=== PATIENT | male | born 1985 | race Caucasian/White ===

== ENCOUNTER 2016-07-14 05:05 | Inpatient (IN) | payer MEDICAID, OTHER ==
[~2016-07-14] VITALS: Ht 172.7 cm; Wt 73.8 kg
[2016-07-14] VITALS (9 sets, daily range): BP systolic 135–175; BP diastolic 63–90; PULSE 95–150; RESP 20–28; O2SAT 95–100
[~2016-07-14 05:05] MED LIST: PANT40TA3 PO
[2016-07-14 05:30] LABS: BASOPHILS % (AUTO) 1.1 % (0-3); EOSINOPHILS % (AUTO) 4.7 % (0-5); MONOCYTES % (AUTO) 6.8 % (4-12); Mean Corpuscular Hemoglobin 30.6 pg (27.0-35.0); Mean Corpuscular Volume 88.8 fL (81-100); NEUTROPHILS % (AUTO) 59.8 % (40-74); Platelet Count 274 bil/L (150-400)
--- NOTE | 2016-07-14 06:22 | ED.REPORT ---
HPI-Psychiatric Illness Date of Service Jul 14, 2016 ED Provider: Kimberly Cortez MD 31 year old male with a history of schizophrenia, bipolar disorder, panic disorder, anxiety, and alcoholism presents to the ER escorted by his father due to paranoid delusions. He states that: "I thought the neighbors were attacking me"; "I'm non-violent"; "I want to go to [facility], self-committed if possible". He also reports auditory hallucinations. Patient admits to alcohol consumption tonight, and regular THC use, though he denies current methamphetamine use. Currently he is on hydrocodone and amoxicillin for the past three days after having his wisdom teeth extracted. In the past he was on Latuda and Zyprexa which were not effective. He reports that he has been banned from mental health court for a prior misdemeanor secondary to alcohol and THC use. Nursing Notes Stated Complaint: PSYCH EVAL Chief Complaint: Psychiatric Complaint Nursing Notes Reviewed: Yes Allergies: Coded Allergies: No Known Allergies (Verified Allergy, Unknown, 07/15/15) Scheduled Pantoprazole (Pantoprazole DR) 40 Mg Tablet.dr 40 MG PO DAILY General Time Seen by MD: 05:09 Chief Complaint Hallucinations, auditory, Paranoid Hx Obtained From: Patient, Other family... (Father) Arrived By: Walk-in Onset Occurred: Just prior to arrival Context of Onset: Intoxicated, alcohol Symptom Duration: Since onset Associated with: Reports: Anxiety, Delusions, Paranoia, Denies: Violence Related History: Reports: Alcohol abuse, Anxiety, Bipolar disorder, Illicit drug use, Schizophrenia Similar Sx Previous: Yes Risk-Psychiatric Illness Suicide Risk Stratification Suicide Risk Factors - Adult: : Alcohol use: Substance abuse RF Statements: Risk factors reviewed Past Medical History Past Medical History Schizophrenia Bipolar disorder Panic disorder Anxiety Agoraphobia MRSA in toe Reports: Pancreatitis Smoking History Current Every Day Smoker Social History Alcohol Use: >5 per day Drug Use: Meth, THC Other Social History: Good social support, Lives with parents, Local resident Ambulatory Status Independent Review of Systems Psychiatric: Reports: Anxiety, Delusional, Hallucinations, auditory, Denies: Confusion, Depression, Homicidal ideation, Hostile, Suicidal ideation Complete sys rev & neg: except as marked. Physical Exam Initial Vital Signs Vital Signs (First) Date Time Temp Pulse Resp B/P Pulse Ox O2 Delivery O2 Flow Rate FiO2 07/14/16 05:11 36.0 150 28 175/90 100 Room Air Initial VS: Reviewed Head / Eyes: Atraumatic, Normocephalic Neck: Supple, Non-tender, Full range of motion Abdomen / GI: Soft, Non-tender, No guarding, No rebound, No distention Extremities: Vascular intact, Neuro intact, No swelling, No tenderness General/Constitutional: Awake, Alert, Well developed Behavior: Positive: Anxious, Restless Neurologic: Oriented X3, Speech NL, No sensory deficits, Cerebellar NL, Memory NL Movement Abnormality: Positive: Akathisia Moderately focused. Good eye contact. Psychiatric: Not suicidal, Not homicidal, Cognitive function NL Abnormal Thinking / Perception: Positive: Delusions - paranoid, Hallucinations , auditory Respiratory / Chest: Breath sounds NL, Breath sounds = bilat, No respiratory distress, No rales, No rhonchi, No wheezing Cardiovascular: Heart rate NL, Regular rhythm, Heart sounds NL, Peripheral circulation NL Upper Extremity / MS: Full range of motion, No deformity, Neurologic intact, Vascular intact No self-inflicted injuries. Wrist / Hand: Full range of motion, No deformity, Neurologic intact, Vascular intact Clubbing of fingers. Interpretation & Diagnostics Interpretation & Diagnostics: CIWA 16 and breathalizer .19 utox: THC, opiate, tricyclics Lab Results Interpretation Result Diagram: 07/14/16 0513 07/14/16 0513 Test 07/14/16 05:12 07/14/16 05:13 07/14/16 05:30 Hold Zaman Top Tube Received (Received) White Blood Count 7.2th/mm3 (3.8-10.1) Red Blood Count 4.80mil/mm3 (4.40-5.80) Hemoglobin 14.7g/dL (13.8-17.2) Hematocrit 42.6% (41.0-50.0) Mean Corpuscular Volume 88.8fL (81-100) Mean Corpuscular Hemoglobin 30.6pg (27.0-35.0) Mean Corpuscular Hemoglobin Concent 34.5% (32.0-37.0) Red Cell Distribution Width 13.3% (12.3-15.4) Platelet Count 274bil/L (150-400) Neutrophils (%) (Auto) 59.8% (40-74) Lymphocytes (%) (Auto) 27.3% (14-46) Monocytes (%) (Auto) 6.8% (4-12) Eosinophils (%) (Auto) 4.7% (0-5) Basophils (%) (Auto) 1.1% (0-3) Sodium Level 142mEq/L (134-144) Potassium Level 4.3mEq/L (3.5-5.2) Chloride Level 102mEq/L (97-108) Carbon Dioxide Level 18mmol/L (18-29) Blood Urea Nitrogen 15mg/dL (6-20) Creatinine 1.75mg/dL (0.76-1.27) Estimat Glomerular Filtration Rate 48mL/min (>59) Glucose Level 73mg/dL (60-99) Calcium Level 9.1mg/dL (8.5-10.1) Total Bilirubin 0.3mg/dL (0.0-1.2) Aspartate Amino Transf (AST/SGOT) 68U/L (0-50) Alanine Aminotransferase (ALT/SGPT) 29U/L (0-44) Alkaline Phosphatase 128U/L (25-150) Total Protein 7.0g/dL (6.4-8.4) Albumin 4.5g/dL (3.4-5.0) Thyroid Stimulating Hormone (TSH) 1.770uIU/mL (0.450-4.500) Hold Urine Received (Received) Re-Eval/Medical Decision Med Decision/Clinical Course very cooperative and asking for help with the voices. Will need medical assistance with the alcohol withdrawal. Renal insufficiency will need additional following but veronika is volume related. Have requested formal psychiatric in-pt consult to help with med management. Will need social work to help with dispo once through alcohol detox Source of Hx: Old records Re-Evaluation/Progress : Time of Eval: 07:43 Re-Evaluation/Progress Note: Discussed need for admission. Patient is amenable to the plan. All other questions addressed. Consultation : Referral / Consult Name: Lyric Lewis DO Consulted With: Hospitalist Call Returned at: 08:40 Certified Professional Midwife: Agrees with eval, Agrees with plan, Accepts admit Counseled Regarding: Diagnosis, Lab results, Need for admission Discharge & Departure Impression: Primary Impression: Alcohol withdrawal Additional Impressions: Schizophrenia Schizophrenia type: disorganized schizophrenia Qualified Code: F20.1 - Disorganized schizophrenia Acute renal injury )( Condition at Discharge: No danger to self, No danger to others, No suicidal ideation, No homicidal ideation Disposition: ADMITTED TO HOSPITAL Discharge Condition All VS Reviewed: Yes Condition: Improved Referrals: Sivakumar Garcia MD (PCP) Saulo Attestation Portions of this note were transcribed by Raj Redman. I, Dr. Cortez, personally performed the history, physical exam and medical decision-making; I reviewed and confirmed the accuracy of the information in the transcribed note. Signed by: Saulo Araya, 07/14/2016 and 08:56 copies to: Sivakumar Garcia MD, Shawna L MD Jul 14, 2016 06:22 RAJ REDMAN Jul 14, 2016 06:28
[2016-07-14] MEDS ORDERED: 0.9% Sodium Chloride 1,000 ML IV ONE (07:12)
[2016-07-14] MEDS ORDERED: LORazepam 2 mg Tablet PO ONE (07:15)
[2016-07-14] MEDS ORDERED: Alum-Mag Hydrox-Simeth 30 mL Suspension PO ONE (08:40)
[2016-07-14] MEDS ORDERED: Alum-Mag Hydrox-Simeth 30 mL Suspension PO PRN (09:30)
[2016-07-14] MEDS ORDERED: Ondansetron 2 mg/mL 2 mL Inj IVPUSH PRN (09:30)
[2016-07-14] MEDS ORDERED: Polyethylene Glycol (PEG) 17 Gm Powder PO PRN (09:30)
[2016-07-14] MEDS ORDERED: Thiamine Inj 100 MG, Folic Acid Inj 1 MG, Magnesium Sulfate 50% Inj 2 GM, Multivitamins... IV ONE ×5 (09:35)
[2016-07-14 10:07] LABS: INR 0.88 ratio
[2016-07-14 10:32] LABS: Creatine Kinase 245 U/L (21-232); Magnesium 2.2 mg/dL (1.6-2.6); Phosphorus 4.4 mg/dL (2.5-4.9)
--- NOTE | 2016-07-14 11:00 | NUR ---
Arrival to floor Pt arrives to floor from ED Pt is very fidgety, alert and orient and very cooperative.
[2016-07-14] MEDS ORDERED: IBUP200C PO (11:30)
[2016-07-14] MEDS ORDERED: Multivit-Miner-Folic Acid-Iron Tablet PO SCH (12:00)
[2016-07-14] MEDS: Multivit-Miner-Folic Acid-Iron Tablet PO SCH (13:45)
[2016-07-14] MEDS ORDERED: LORazepam 1 mg Tablet PO ONE (14:35)
[2016-07-14] MEDS ORDERED: Acetaminophen IV 1,000 MG in IV Premix 1 EACH IV ONE (14:35)
[2016-07-14] MEDS: 0.9% Sodium Chloride 1,000 ML IV SCH (15:00)
--- NOTE | 2016-07-14 15:55 | PCM.HPMED ---
Subjective Date of Service Jul 14, 2016 Primary Provider: Admitting Physician: Lyric Lewis DO Primary Care Physician: Sivakumar Garcia MD Attending Physician: Lyric Lewis DO Admit Status: Admit to Blue Team Chief Complaint: Auditory hallucinations History of Present Illness: Patient is an 31-year-old white male with history of bipolar disorder, schizophrenia, anxiety with panic attacks and alcoholism who presented to [facility] Emergency Department with paranoid delusions. Patient states he started having auditory hallucinations about 2 years ago. Last night he started having hallucinations again and he thought that his neighbors were attacking him. Patient states every time he has hallucinations he develops panic attacks and he uses alcohol as his medication. So last night he started drinking, he had about a bottle of white wine, but this time hallucinations did not go away and he became more combative and aggressive to the point the patient 's father brought him in to the emergency department. He also admits to regular THC use and denies current methamphetamine use. He was diagnosed with anxiety and panic attacks in 2007, and has been diagnosed with schizophrenia and bipolar disorder in the fall of 2016 at [facility]. In the past he was on left to and Zyprexa which were not effective, according to the patient. He reports that he has been banned from mental health court for a prior misdemeanor secondary to alcohol and THC use. Patient desires to get psychiatric evaluation to help with medication management. He is currently not taking any antipsychotic and/or antidepressant medications. Patient currently denies chest pain, shortness of breath, heart palpitations, nausea, vomiting, diarrhea, chills, tremors, headache. He does endorse sore mouth as he had his wisdom teeth extracted just recently and he was on hydrocodone and amoxicillin for the past 3 days at home. In the emergency department his vital signs were: temperature 36.04 C, pulse 150 , respiratory rate 28, pulse ox 100% on room air. His blood work is significant for creatinine of 1.75, AST of 68 and total creatinine kinase of 254. CIWA score of 16, and breathalizer 0.19. He was given Haldol 5 mg, Lorazepam 2 mg, Diazepam IV, banana bag. Review of Systems: A comprehensive review of systems was conducted with the patient and found to be negative except as above in the history of present illness. Allergies Coded Allergies: No Known Allergies (Verified Allergy, Unknown, 07/15/15) Home Medications OTC Tylenol and ibuprofen PMH Schizophrenia Bipolar disorder Panic disorder Anxiety Depression Agoraphobia H/o MRSA in toe H/o pancreatitis Surgical History Hand surgery Family History Mother and father are healthy and alive Social History Hx Alcohol Use: Yes (Everyday since 11 years of age) Alcoholic Drinks Per Day: 3 beer or 2 glasses of wine Hx Substance Use: Yes (marijuana, LSD, last smoked meth one month ago. ) Hx Tobacco Use: Yes (smoking since 11 years of age) Smoking Status: Current Every Day Smoker Living Arrangement: with Family Exam Vital Signs Vital Sign - Last Date Time Temp Pulse Resp B/P Pulse Ox O2 Delivery O2 Flow Rate FiO2 07/14/16 09:44 120 07/14/16 09:16 37.1 20 135/63 95 Room Air Exam Gen: Awake, alert, well developed, mildly anxious Head: Atraumatic, normocephalic Eyes: PEERL, EOMI anicteric sclera Neck: Supple, nontender, range of motion Heart: RRR, S1, S2, no murmurs appreciated Lungs: Clear to auscultation bilaterally, no respiratory distress, no wheezing Extremities: Vascular/Intact, no edema, clubbing (hands), splinter hemorrhages second and third finger, right hand Neuro: Alert and oriented 3 Psych: Anxious, restless (akathisia) Lab and Diagnostics Labs UA pending Urine tox: THC, opiates, tricyclics Hepatitis panel pending Tox screen negative Result Diagram: 07/14/1651207/14/16512 Assessment & Plan This is a 31-year-old very pleasant male with history of bipolar disorder, schizophrenia, anxiety with panic attacks and alcoholism who presented to [facility] Emergency Department with paranoid delusions and vocal hallucinations. Admitted for alcohol withdrawal. Hospital day #1. #1 Alcohol intoxication, present on admission, active -CIWA 16 and breathalizer 0.19 -Long-standing history of alcohol dependence -Banana bag -Thiamine 100 mg IV 3 days -Multivitamin and Folate daily -Diazepam according to CIWA -NS IV @ 100 mls/hr #2 Paranoid delusions and auditory hallucinations, present on admission, active -H/o of schizophrenia, patient has been on Latuda and Zyprexa without positive effect -Patient reports decrease of symptoms after dose of Haldol in ED -Psychiatry consult -Haldol, 2 mg q8h, may consider changing to Invega Sustenna (IM monthly) -Close monitoring #3 Acute kidney injury, present on admission, active -Creatinine of 1.75 on admission, baseline unknown -Most likely volume related -NS IV @ 100 mls/hr -Avoid nephrotoxic drugs -Labs in the morning #4 Anxiety, present on admission, active -Lorazepam 1mg hs -Psychiatry consult #5 Pain disorder, present on admission, active -As above in #4 #6 Gum pain s/p wisdom teeth extraction, present on admission, active -Tylenol, po for pain -Continue amoxicillin 500 mg tid x 4 days #7 Chronic drug dependence, present on admission, active -Maintain medication for chronic anxiety #8 Alcohol dependence -Education and counseling for substance abuse cessation Pain Evaluation: Adequate Pain Control VTE Prophylaxis: SCDs Resuscitation Status: CPR: Attempt Resuscitation Attending Statement The patient was seen and examined together with Dr. Rodriguez on 07/14/16 and I agree with the history, exam and plan as outlined in the note above. Emily Rodriguez DO Jul 14, 2016 15:00 Lyric Lewis DO Jul 15, 2016 15:17
[2016-07-14] MEDS: Heparin 5,000 Unit/mL Inj SUBQ SCH (17:01)
--- NOTE | 2016-07-14 18:33 | NUR ---
LOC Nurse took over patient care around 1600. Patient slept for most of remainder of shift except when woken for medications and to order dinner. When patient is awake, patient has spastic rigid movements with his arms. Patient is slow to verbally respond at times and does word searching.
[2016-07-14] MEDS: LORazepam 0.5 mg Tablet PO SCH (20:25)
[2016-07-15] MEDS: 0.9% Sodium Chloride 1,000 ML IV SCH (00:43)
[2016-07-15] MEDS: Heparin 5,000 Unit/mL Inj SUBQ SCH ×3 (00:43→17:50)
[2016-07-15 01:29] VITALS: BP 148/94; PULSE 83; RESP 18; O2SAT 97
[2016-07-15 02:09] LABS: Hepatitis A Antibody IgM Negative (Negative); Hepatitis B Core Antibody IgM Negative (Negative)
[2016-07-15 05:11] VITALS: BP 162/94; PULSE 78; RESP 18; O2SAT 98
--- NOTE | 2016-07-15 05:52 | NUR ---
LOC/CIWA Pt rested throughout the night with no complaints of pain or discomfort. Denies SOB, n/v or chest pain. Pt drowsy, but able to answer questions and follow directions appropriately. CIWA scored at 9. Pt denies any auditory or visual hallucinations. Call light within reach. Pleasant and cooperative with care.
[2016-07-15 06:53] LABS: BASOPHILS % (AUTO) 0.5 % (0-3); EOSINOPHILS % (AUTO) 2.1 % (0-5); MONOCYTES % (AUTO) 4.6 % (4-12); Mean Corpuscular Hemoglobin 30.9 pg (27.0-35.0); Mean Corpuscular Volume 89.7 fL (81-100); NEUTROPHILS % (AUTO) 77.7 % (40-74); Platelet Count 231 bil/L (150-400)
[2016-07-15 07:13] LABS: Vitamin B12 493 pg/mL (211-946)
[2016-07-15 08:00] VITALS: PULSE 94
[2016-07-15 08:30] VITALS: BP 163/97; PULSE 85; RESP 17; O2SAT 97
[2016-07-15] MEDS: Multivit-Miner-Folic Acid-Iron Tablet PO SCH (08:53)
[2016-07-15] MEDS: Thiamine Inj 100 MG in 0.9% Sodium Chloride 100 ML IV SCH (09:40)
--- NOTE | 2016-07-15 10:49 | NUR ---
NO HARM CONTRACT Pt reported to have past attempt thoughts with no current ideations of suicide or homicide. Speak/converse with pt in a kind/compassionate/no judgemental way. Pt willing to sign NO HARM CONTRACT. Placed in chart. Monitoring per suicide intervention every 30 min.
--- NOTE | 2016-07-15 11:45 | NUR ---
Social Work Note - Mental health evaluation Jh Thompson is a 31 yr old who was admitted for acute alcohol withdrawal, DILL[place]. EMR reviewed: Pt has [facility] insurance, his PCP is Dr Garcia. BUSINESS DEVELOPMENT ENGINEER met with pt - introduced SW and explained SW role. Pt lives at home with his mother and father on [address]. He is not employed, has no income, is supported by his family. Current Mental Status: Pt is alert, oriented, sitting up in bed. Poor eye contact. Very anxious - fidgeting, sweating. He is able to share information, but is soft spoken, does not volunteer information. He endorses auditory hallucinations - recognizes the voices as friends from his past - they mumble and "mess with me" and he describes it as getting worse. Denies any command hallucinations, denies that the voices are degrading. "Just so annoying". He denies any suicidal ideations, no hx of attempts, no plans for self harm. He is independent with his ADLS. Reports to sleeping much of the day and night, appropriate appetite. Denies any new stressors, but admits that he is agoraphobic - isolated due to anxiety. Psychiatric History/Treatment: Pt has hx of Mental health - states that he was diagnosed with Schizophrenia and Bipolar. He endorses severe anxiety at baseline as well. [facility] confirms that pt has had no Inpt treatment or hospitalizations, was open with [facility] until May 2016 - was closed because he did not follow up with appointments - last seen at [facility] in January 2016. Chemical Dependency: Pt admits that he struggles with alcohol daily - drinks at least a bottle of wine a day to help him sleep and to help quiet his auditory hallucinations. He has hx of meth, LSD and heroin use - last used about a year ago when he moved in with his parents. He smokes THC daily for anxiety. Pt states that he does not connect with old friends because they do drugs and he does not want to get into trouble. He denies any current substance use disorder treatment. He identifies that he needs to cut back on alcohol but does not think he will stop drinking all together. Legal Hx: Pt was charged for indecent exposure in 2014 - States that he was "sleepwalking" under the influence of drugs and was caught. He went to court and spent some time in fpc. Denies any current legal issues but was court ordered to work with [facility] - When Court expectations were met, he stopped going to meetings, stopped taking medications. Suicide Risk: Pt denies any current or past suicidal ideations. He is willing to safety plan and states that he would tell his family if he started feeling like ending his life. Pt gave BUSINESS DEVELOPMENT ENGINEER permission to talk with pt's family - BUSINESS DEVELOPMENT ENGINEER spoke with pt's father Cale on the phone. Cale states that pt is isolated, unmotivated, anxious and an alcoholic. He states that pt would benefit from substance use treatment and mental health services but he likely will not follow through with senior care help. Family will allow pt to return home at d/c and will encourage community follow up. Pt does not drive - BUSINESS DEVELOPMENT ENGINEER will encourage Pt to use transportation from his insurance to get to Community assessments and appointments. BUSINESS DEVELOPMENT ENGINEER provided phone numbers and community resources. BUSINESS DEVELOPMENT ENGINEER called [facility] - asked for Hospital follow up and Emergency services appointment for Monday at [facility]. BUSINESS DEVELOPMENT ENGINEER discussed case with MD and provided update to BUSINESS DEVELOPMENT ENGINEER who will follow. Plan: Home with family in POV with follow up next week at [facility] for Mental Health and Substance Use Disorder assessments. PUNEET Guzman
--- NOTE | 2016-07-15 14:43 | CONS ---
[address] [address] CONSULTATION REPORT PATIENT: LORENZO BOWER : 1985 MR#: [id number] ADMIT: 07/14/2016 JOB ID: [id number] DATE OF SERVICE: 07/15/2016 INTERNAL MEDICINE SERVICE CONSULT: IDENTIFICATION: The patient is a 31-year-old, single white male, currently living with his family. He is currently unemployed and lives on [facility] with his family. REASON FOR ADMISSION: Client to the emergency department on July 13, 2016, with significant symptoms of delusions. He stated, "I thought the neighbors were attacking me. I want to go to [facility]." He was found to be in acute alcohol withdrawal and was admitted to the Medical service for stabilization. REASON FOR CONSULT: Assistance in psychiatric care. HISTORY OF PRESENT ILLNESS: I was asked to consult the patient for evaluation and treatment of psychotic symptoms. I met with him for a 60-minute evaluation and reviewed course and records kept by [facility]. Client's main issue is alcohol withdrawal. Co-occurring issues are an underlying psychotic disorder. The alcoholic withdrawal is acute and has been developing over the past 72 hours due to stopping alcohol use. He is tending to spend most of his day drinking and smoking. He is using alcohol, marijuana and cigarettes. It appears he was attempting to self medicate. Approximately six months ago he was diagnosed at [facility] with a psychotic disorder. He was tried on Zyprexa and Latuda, and stated they "did not work." He is currently having symptoms of derogatory auditory hallucinations and persecutory delusions. He is requesting medications, treatment and followup. All the above are improved when he refrains from alcohol and marijuana, when he gets good relaxation and when he has good social support. He is currently presenting with signs of tremulousness that seem to be related to the alcohol withdrawal. His cognition, judgment, insight, coping and reality testing were all quite good today. PSYCHIATRIC REVIEW OF SYSTEMS: Positive for psychosis in terms of auditory hallucinations and delusional thought. PAST MEDICAL HISTORY: MEDICATIONS: Client was on no psychiatric medications prior to admission. He is currently receiving amoxicillin and Valium per the CIWA protocol, Haldol 2 mg 3 times a day, heparin and Ativan 0.5 h.s. ALLERGIES: None. ILLNESSES: Acute alcohol withdrawal. FAMILY MEDICAL HISTORY: Noncontributory. PAST PSYCHIATRIC HISTORY: Client diagnosed with psychotic disorder by [facility] approximately six months ago. Client has no history of inpatient. PSYCHOSOCIAL: Born in [place]. Attended school through the 9th grade. Denies history of trauma. States he uses regular marijuana in relatively high doses and enjoys drinking wine. He also smokes cigarettes. SUICIDAL IDEATION: None. SUICIDE ATTEMPTS: None. RELATIONSHIPS: Single. CONFUCIANISM: None. LEGAL HISTORY: None. PHYSICAL EXAMINATION: Vital signs: 163/97, pulse 85, respirations 17, afebrile. General: Appears tremulous, alert and oriented to person, place and date. MENTAL STATUS EXAMINATION: Client neatly dressed in hospital gown. He sat up to talk with me in a polite manner. He is calm, although he appeared restless and tremulous. Status: He was pleasant and cooperative. Normal speech except slightly slurred. Mood was calm. Mood was euthymic. Affect congruent. Normal intensity. Thought process logical and goal oriented. Client was able to relate a coherent history. He was able to appreciate simple and complex abstractions. Thought content significant for themes of wanting to get off [facility] and start a life of his own separate from his parents. He wants to get restarted on psychiatric medications and have relief from the voices. He denied suicidal ideation, plan, or intent. He did not appear to be responding to internal stimuli. Client's memory and attention were mildly impaired. Insight and judgment are good. Impulse control highly contained. Reality testing intact. Competence to handle current stressors: The client is currently unable to handle current stressors in his life. IMPRESSION: The patient is a 31-year-old, white male, who has been using alcohol and marijuana for many years. He stated he began having auditory hallucinations approximately six months ago and was diagnosed with a psychotic disorder at [facility]. It appears he briefly tried Zyprexa and Latuda but had stopped all medications and is primarily using alcohol and THC to treat his symptoms. He came into the hospital requesting transfer to [facility] to help with delusions and derogatory auditory hallucinations. However, after several days of treatment in the intensive care unit, he is hoping to return back to [facility] and to get services through [facility] in [place]. DIAGNOSES: AXIS I 1. Psychotic disorder, unspecified, rule out secondary to polysubstance abuse, rule out secondary to schizophrenia, rule out secondary to bipolar mood disorder with psychosis, rule out secondary to major depressive disorder with psychosis. 2. Alcohol abuse. 3. THC abuse. AXIS II Defer. AXIS III Alcohol withdrawal. AXIS IV Unknown. AXIS V Current Global Assessment of Functioning equal to 40. PLAN: Recommend client continue on current medications, Haldol 2 mg 3 times a day. Would consider adding p.r.n. Benadryl at 50 mg q.4 h. as needed for tremulousness secondary to potential extrapyramidal symptoms from Haldol. After client has worked through the [facility] protocol, would recommend discontinuing Haldol, starting Latuda 40 mg daily and if mentally stable, would discharge to home with followup at [facility]. Thank you for an interesting consult. The patient seems like a young man who really needs to get connected with psychiatric services.
[2016-07-15] MEDS ORDERED: Paliperidone Palmitate 234 mg/1.5 mL Inj (NC) IM ONE (15:20)
--- NOTE | 2016-07-15 17:14 | PCM.PNMED ---
Subjective Date of Service Jul 15, 2016 Subjective Patient is an 31-year-old white male with history of bipolar disorder, schizophrenia, anxiety with panic attacks and alcoholism who presented to [facility] Emergency Department with paranoid delusions. Admitted for alcohol withdraw. Hospital day #2. No acute overnight events. Telemetry: sinus rhythm at 70-90's. Patient states he is feeling better today. Denies new hallucinations. Has been able to sleep through the night. Exam Vital Signs Vital Sign - Last Date Time Temp Pulse Resp B/P Pulse Ox O2 Delivery O2 Flow Rate FiO2 07/15/16 08:30 36.6 85 17 163/97 97 Room Air Intake and Output 07/14/16 07/14/16 07/15/16 Cumulative From/Thru 15:00 23:00 07:00 07/14/16 05:11 - 07/15/16 06:33 Intake Total 1000 ml 1700 ml 350 ml 3050 ml Output Total 0 ml 700 ml 700 ml Balance 1000 ml 1700 ml -350 ml 2350 ml Intake Oral 400 ml 350 ml 750 ml IV Total 1000 ml 1300 ml 2300 ml Output Urine Total 0 ml 700 ml 700 ml Exam Gen: Awake, alert, well developed, mildly anxious Head: Atraumatic, normocephalic Eyes: PEERL, EOMI anicteric sclera Neck: Supple, nontender, range of motion Heart: RRR, S1, S2, no murmurs appreciated Lungs: Clear to auscultation bilaterally, no respiratory distress, no wheezing Extremities: Vascular/Intact, no edema, clubbing (hands), splinter hemorrhages second and third finger, right hand Neuro: Alert and oriented 3 Psych: Anxious, restless (akathisia) Lab and Diagnostics Result Diagram: 07/15/1662407/15/16624 Assessment & Plan This is a 31-year-old very pleasant male with history of bipolar disorder, schizophrenia, anxiety with panic attacks and alcoholism who presented to [facility] Emergency Department with paranoid delusions and vocal hallucinations. Admitted for alcohol withdrawal. Hospital day #2. #1 Alcohol intoxication, present on admission, active -CIWA 16 and breathalizer 0.19 on admission -Long-standing history of alcohol dependence -Banana bag -Thiamine 100 mg IV 3 days -Multivitamin and Folate daily -Diazepam according to CIWA -NS IV @ 100 mls/hr #2 Paranoid delusions and auditory hallucinations, present on admission, active -H/o of schizophrenia, patient has been on Latuda and Zyprexa without positive effect -Patient reports decrease of symptoms after dose of Haldol in ED -Psychiatry consult with Dr. Mendieta, we appreciate the input -Per psychiatry, recommendation is to continue Haldol, 2 mg q8h may and starting Benadryl at 50 mg q.4 h. as needed for tremulousness secondary to potential extrapyramidal symptoms from Haldol. He also recommends discontinuing Haldol (after patient is done with CIWA protocol) and start him on Latuda 40 mg daily and if mentally stable, would discharge to home with followup at [facility]. - May consider changing to Invega Sustenna (IM monthly) ? -Close monitoring #3 Acute kidney injury, present on admission, resolved -Creatinine of 1.75 on admission, baseline unknown, Cr. 0.46 today -Most likely volume related -D/c NS IV -Avoid nephrotoxic drugs -Labs in the morning #4 Anxiety, present on admission, active -Lorazepam 1mg hs #5 Pain disorder, present on admission, active -As above in #4 #6 Gum pain s/p wisdom teeth extraction, present on admission, active -Tylenol, po for pain -Continue amoxicillin 500 mg tid x 4 days #7 Chronic drug dependence, present on admission, active -Maintain medication for chronic anxiety #8 Alcohol dependence, present on admission, active -Education and counseling for substance abuse cessation VTE Prophylaxis: SCDs VTE Mechanical Devices: Intermittant Pneumatic CD Resuscitation Status: CPR: Attempt Resuscitation Attending Statement The patient was seen and examined together with Dr. Rodriguez on 07/17/16 and I agree with the history, exam and plan as outlined in the note above. Emily Rodriguez DO Jul 15, 2016 17:00 Lyric Lewis DO Jul 17, 2016 11:45
[2016-07-15 18:24] VITALS: BP 155/106; PULSE 103; RESP 18; O2SAT 94
[2016-07-15] MEDS ORDERED: Labetalol 5 mg/mL 4 mL Inj IVPUSH ONE (19:00)
--- NOTE | 2016-07-15 19:18 | NUR ---
CIWA Around 1800 pt CIWA score went up to 20. Pt body was rigid in bed, clenching jaw, reported being unable to open and felt like it was dislocated. Sweaty, shaking in bed, panicking. BP 155/106, HR 103 Given 5mg dose IV Valium per score. Waited 10 minutes, new CIWA was 19. Pt reported feeling better but evaluation was still close to previous. Given another dose (2nd part of same vial) of 5mg Valium. Paged MD. Last CIWA score of 10. Pt more at ease. MD called, and aware. New dose 20mg IV Labetalol ordered for BP. Next shift aware and continuing with care.
[2016-07-15 20:06] VITALS: BP 160/100; PULSE 88; RESP 18; O2SAT 96
[2016-07-15] MEDS: LORazepam 0.5 mg Tablet PO SCH (20:56)
[2016-07-16] VITALS (7 sets, daily range): BP systolic 137–155; BP diastolic 83–98; PULSE 66–95; RESP 16–18; O2SAT 96–99
[2016-07-16] MEDS: Heparin 5,000 Unit/mL Inj SUBQ SCH ×3 (01:09→16:30)
--- NOTE | 2016-07-16 06:27 | NUR ---
BP Pt BP 155/106 per shift report. notified. New order: One time dose Labetalol IV push. BP decreased 148/85. Will continue to monitor.
--- NOTE | 2016-07-16 06:31 | NUR ---
CIWA At 2053 CIWA 13, Shaky, sweating, increased anxiety and agitation. Administered Valium 5mg IV push per protocol. Re-assessed, CIWA 10, Administered Valium 5mg IV push per protocol. Reassessed, CIWA 22, body rigid, clenching jaw. Pt reported being unable to open or move jaw. Drenched in sweat, tremors, increased anxiety and agitation. Administered Valium 10mg IV push, reassessed, CIWA 10. Pt CIWA scores remained between 9-13 for the remainder of the night. [place] bed alarm on for safety. Call light within reach. Pleasant and cooperative with care.
[2016-07-16] MEDS: Multivit-Miner-Folic Acid-Iron Tablet PO SCH (09:07)
[2016-07-16 09:08] LABS: BASOPHILS % (AUTO) 0.4 % (0-3); EOSINOPHILS % (AUTO) 3.4 % (0-5); MONOCYTES % (AUTO) 5.9 % (4-12); Mean Corpuscular Hemoglobin 30.6 pg (27.0-35.0); NEUTROPHILS % (AUTO) 63.2 % (40-74); Platelet Count 239 bil/L (150-400)
[2016-07-16] MEDS: Thiamine Inj 100 MG in 0.9% Sodium Chloride 100 ML IV SCH (09:10)
[2016-07-16] MEDS ORDERED: diphenhydrAMINE 50 mg Capsule PO PRN (14:15)
--- NOTE | 2016-07-16 14:28 | PCM.PNMED ---
Subjective Date of Service Jul 16, 2016 Subjective Patient is an 31-year-old white male with history of bipolar disorder, schizophrenia, anxiety with panic attacks and alcoholism who presented to [facility] Emergency Department with paranoid delusions. Admitted for alcohol withdraw. Hospital day #3. Overnight: CIWA of 20, 5 mg IV Valium given, CIWA 19, second dose administered. CIWA 10. Also 20 mg IV Labetalol given for high BP. This morning patient states he is feeling better today. States he has less auditory hallucinations. Has been able to sleep through the night. Exam Vital Signs Vital Sign - Last Date Time Temp Pulse Resp B/P Pulse Ox O2 Delivery O2 Flow Rate FiO2 07/16/16 10:28 36.7 84 18 155/98 97 Room Air Intake and Output 07/15/16 07/15/16 07/16/16 Cumulative From/Thru 15:00 23:00 07:00 07/14/16 05:11 - 07/16/16 06:00 Intake Total 592 ml 380 ml 4022 ml Output Total 300 ml 600 ml 1600 ml Balance 292 ml -220 ml 2422 ml Intake Oral 592 ml 380 ml 1722 ml IV Total 2300 ml Output Urine Total 300 ml 600 ml 1600 ml # Voids 3 3 # Bowel Movements 0 0 Exam Gen: Awake, alert, well developed, mildly anxious Head: Atraumatic, normocephalic Eyes: PEERL, EOMI anicteric sclera Neck: Supple, nontender, range of motion Heart: RRR, S1, S2, no murmurs appreciated Lungs: Clear to auscultation bilaterally, no respiratory distress, no wheezing Extremities: Vascular/Intact, no edema, clubbing (hands), splinter hemorrhages second and third finger, right hand Neuro: Alert and oriented 3 Psych: Anxious, restless (akathisia) Lab and Diagnostics Result Diagram: 07/16/1652 07/16/16 0852 Assessment & Plan This is a 31-year-old very pleasant male with history of bipolar disorder, schizophrenia, anxiety with panic attacks and alcoholism who presented to [facility] Emergency Department with paranoid delusions and vocal hallucinations. Admitted for alcohol withdrawal. Hospital day #3. #1 Alcohol intoxication, present on admission, active -CIWA 16 and breathalizer 0.19 on admission -Long-standing history of alcohol dependence -Banana bag -Thiamine 100 mg IV 3 days (last day today, convert to oral tomorrow) -Multivitamin and Folate daily -Diazepam according to CIWA -NS IV @ 100 mls/hr #2 Paranoid delusions and auditory hallucinations, present on admission, active -H/o of schizophrenia, patient has been on Latuda and Zyprexa without positive effect -Patient reports decrease of symptoms after dose of Haldol in ED -Psychiatry consult with Dr. Mendieta, we appreciate the input -Per psychiatry, recommendation is to continue Haldol, 2 mg q8h PRN, and starting Benadryl at 50 mg q.4 h. as needed for tremulousness secondary to potential extrapyramidal symptoms from Haldol. He also recommends discontinuing Haldol (after patient is done with CIWA protocol) and start him on Latuda 40 mg daily and if mentally stable, would discharge to home with followup at [facility]. -Started yesterday Invega, 234 mg IM. Will need another dose on day 8, 156 mg IV , and then another dose 117 mg IM in 1 month from the 1-st dose. Patient will need a prescription for the next two doses upon discharge. -Stop Latuda since Invega has been started with good effect -Close monitoring #3 Elevated blood pressure, present on admission, active -Start Lisinopril 5 mg qd -May need PCP follow up for better BP control #4 Acute kidney injury, present on admission, resolved -Creatinine of 1.75 on admission, baseline unknown, Cr. 0.63 today -Most likely volume related -D/c NS IV -Avoid nephrotoxic drugs -Labs in the morning #5 Anxiety, present on admission, active -Lorazepam 1mg hs #6 Pain disorder, present on admission, active -As above in #4 #7 Gum pain s/p wisdom teeth extraction, present on admission, active -Tylenol, po for pain -Continue amoxicillin 500 mg tid x 4 days #8 Chronic drug dependence, present on admission, active -Maintain medication for chronic anxiety #9 Alcohol dependence, present on admission, active -Education and counseling for substance abuse cessation VTE Prophylaxis: SCDs VTE Mechanical Devices: Intermittant Pneumatic CD Resuscitation Status: CPR: Attempt Resuscitation Attending Statement The patient was seen and examined together with Dr. Rodriguez on 07/16/16 and I have added additional information to the note above. Emily Rodriguez DO Jul 16, 2016 14:28 Lyric Lewis DO Jul 17, 2016 17:12
--- NOTE | 2016-07-16 14:31 | NUR ---
IV Infiltation Patient has 3 IV access. C/o pain and tenderness. All 3 infiltrated. MD notified. All d/c'd intact.
--- NOTE | 2016-07-16 18:29 | NUR ---
Behaviors Denies visual or auditory hallucinations. Denies self harm or plan. Compliant with all cares. No concerns at this time.
[2016-07-16] MEDS: LORazepam 0.5 mg Tablet PO SCH (21:38)
[2016-07-17] MEDS: Heparin 5,000 Unit/mL Inj SUBQ SCH ×2 (00:56→08:03)
[2016-07-17 05:10] VITALS: BP 128/74; PULSE 92; RESP 18; O2SAT 98
--- NOTE | 2016-07-17 05:44 | NUR ---
Behavior Denies visual or auditory hallucinations. Denies self harm or plan. Reports some anxiety. Requested something for tremor. Administered Benadryl 50mg. PO. Pt reports, feeling better. Call light within reach, using appropriately. Denies pain. SOB or n/v. Pleasant and cooperative with care.
[2016-07-17 06:09] LABS: BASOPHILS % (AUTO) 0.6 % (0-3); EOSINOPHILS % (AUTO) 4.3 % (0-5); MONOCYTES % (AUTO) 6.9 % (4-12); Mean Corpuscular Hemoglobin 31.1 pg (27.0-35.0); Mean Corpuscular Volume 90.9 fL (81-100); NEUTROPHILS % (AUTO) 58.7 % (40-74); Platelet Count 247 bil/L (150-400)
[2016-07-17] MEDS: Multivit-Miner-Folic Acid-Iron Tablet PO SCH (08:03)
[2016-07-17] MEDS: Thiamine Inj 100 MG in 0.9% Sodium Chloride 100 ML IV SCH (08:30)
--- NOTE | 2016-07-17 10:16 | NUR ---
Social Work: Discharge Data: Pt is on day 3 of hospitalization. EMR reviewed. D/C orders are in. Pt will d/c home via POV with dad and [facility] will follow up with pt on Monday regarding MH services. No further D/C planning needs at this time. [employer] will continue to follow if needs arise. Assessment: Pt who is independent at baseline. Plan: Pt will d/c home via POV with dad and [facility] will follow up with pt on Monday regarding MH services. No further D/C planning needs at this time. [employer] will continue to follow if needs arise. JAY JAY Gallegos
[2016-07-17] MEDS ORDERED: LISI-571 PO (12:01)
[2016-07-17] MEDS ORDERED: HALO1TAB PO ×2 (12:01→12:12)
[2016-07-17] MEDS ORDERED: AMOX500T2 PO (12:01)
[2016-07-17] MEDS ORDERED: diphenHYDramine PO (12:01)
[2016-07-17] MEDS ORDERED: LORA-302 PO (12:01)
[2016-07-17] MEDS ORDERED: PREN1TAB25 PO (12:01)
--- NOTE | 2016-07-17 12:11 | PCM.DIMED ---
Bhavya Sifuentes DO 07/17/16 1210: Discharge Instructions Date of Service Jul 17, 2016 Dates of Hospitalization Jul 14, 2016 at 08:51 Discharge Diagnosis Discharge Diagnosis Acute alcohol intoxication, present on admission. Resolved. Schizophrenia with paranoid delusions and auditory hallucinations, chronic, present on admission. Stable. Elevated blood pressure, present on admission. Stable. Acute kidney injury, present on admission. Resolved. Anxiety, chronic, present on admission. Stable. Pain disorder, chronic, present on admission. Stable. Gum pain s/p wisdom teeth extraction, present on admission. Resolving. Chronic drug dependence, present on admission. Stable. Alcohol dependence, present on admission. Stable. . Medication Instructions New Medications: Amoxicillin 500 mg 3 times a day 4 more doses. Haloperidol 2 mg 3 times a day as needed for voices. Lisinopril 5 mg daily. Lorazepam 0.5 mg before bedtime as needed for insomnia. vitamin 1 tablet daily. Benadryl 50 mg every 4 hours as needed for tremulousness. Invega 156 mg IM x 1 dose on 07/23/16. Continued medications: Ibuprofen 200 mg 4 times a day as needed for pain. Diet No restrictions Activity Limited until seen by PCP ([facility]) Patient Instructions Follow-up plan Please follow up with [facility] within the next week. You will need another dose of Invega 117 mg intramuscularly in one month from your first injection on 08/15/2016. Your next Invega injection will be on 2016 for which you were provided a prescription. . [facility] Follow-up with PCP in: 1 week Lyric Lewis DO 07/17/16 1818: Discharge Instructions Attending's Statement The patient was seen and examined together with Dr. Sifuentes on 07/17/16 and I agree with the history, exam and plan as outlined in the note above. Bhavya Sifuentes DO Jul 17, 2016 12:10 Lyric Lewis DO Jul 17, 2016 18:18
[2016-07-17] MEDS ORDERED: PALI156D IM (12:12)
--- NOTE | 2016-07-17 18:23 | PCM.DC.MED ---
Discharge Summary Date of Service Jul 17, 2016 Dates of Hospitalization Date of Hospital Admission Jul 14, 2016 at 08:51 Date of Discharge: Jul 17, 2016 Providers: Admitting Physician: Lyric Lewis DO Primary Care Physician: Sivakumar Garcia MD Attending Physician: Lyric Lewis DO Diagnosis at Time of Discharge Diagnosis at Time of Discharge Acute alcohol intoxication, present on admission. Resolved. Schizophrenia with paranoid delusions and auditory hallucinations, chronic, present on admission. Stable. Elevated blood pressure, present on admission. Stable. Acute kidney injury, present on admission. Resolved. Anxiety, chronic, present on admission. Stable. Pain disorder, chronic, present on admission. Stable. Gum pain s/p wisdom teeth extraction, present on admission. Resolving. Chronic drug dependence, present on admission. Stable. Alcohol dependence, present on admission. Stable. . Brief History Patient is an 31-year-old white male with history of bipolar disorder, schizophrenia, anxiety with panic attacks and alcoholism who presented to [facility] Emergency Department with paranoid delusions. Patient states he started having auditory hallucinations about 2 years ago. Last night he started having hallucinations again and he thought that his neighbors were attacking him. Patient states every time he has hallucinations he develops panic attacks and he uses alcohol as his medication. So last night he started drinking, he had about a bottle of white wine, but this time hallucinations did not go away and he became more combative and aggressive to the point the patient 's father brought him in to the emergency department. He also admits to regular THC use and denies current methamphetamine use. He was diagnosed with anxiety and panic attacks in 2007, and has been diagnosed with schizophrenia and bipolar disorder in the fall of 2016 at [facility]. In the past he was on left to and Zyprexa which were not effective, according to the patient. He reports that he has been banned from mental health court for a prior misdemeanor secondary to alcohol and THC use. Patient desires to get psychiatric evaluation to help with medication management. He is currently not taking any antipsychotic and/or antidepressant medications. Patient currently denies chest pain, shortness of breath, heart palpitations, nausea, vomiting, diarrhea, chills, tremors, headache. He does endorse sore mouth as he had his wisdom teeth extracted just recently and he was on hydrocodone and amoxicillin for the past 3 days at home. In the emergency department his vital signs were: temperature 36.04 C, pulse 150 , respiratory rate 28, pulse ox 100% on room air. His blood work is significant for creatinine of 1.75, AST of 68 and total creatinine kinase of 254. CIWA score of 16, and breathalizer 0.19. He was given Haldol 5 mg, Lorazepam 2 mg, Diazepam IV, banana bag. Hospital Course This is a 31-year-old very pleasant male with history of bipolar disorder, schizophrenia, anxiety with panic attacks and alcoholism who presented to [facility] Emergency Department with paranoid delusions and vocal hallucinations. Admitted for alcohol withdrawal. Hospital day #3. Patient responded well to first dose of Invega patient is no longer hearing voices. Patient's next dose of Invega 117 mg is due on 07/23/2016. Patient has been given a prescription for this so that this may be started. Patient will follow-up at sunrise he will continue his in [place] dosage eating. Patient has been given 2 mg of Haldol to be taken every 8 when necessary voices. Patient has been instructed to continue taking the vitamin which has a lot of the nutrients needed to maintain his electrolytes. Patient's CIWA scores have been 3 or less. Patient still does have some akathisia which should be treated with 50 mg of Benadryl every 4 hours when necessary as recommended by psychiatry. Patient is being discharged home in stable condition with his father. #1 Alcohol intoxication, present on admission, active -CIWA 16 and breathalizer 0.19 on admission -Long-standing history of alcohol dependence -Banana bag -Thiamine 100 mg IV 3 days (last day today, convert to oral tomorrow) -Multivitamin and Folate daily -Diazepam according to CIWA -NS IV @ 100 mls/hr #2 Paranoid delusions and auditory hallucinations, present on admission, active -H/o of schizophrenia, patient has been on Latuda and Zyprexa without positive effect -Patient reports decrease of symptoms after dose of Haldol in ED -Psychiatry consult with Dr. Mendieta, we appreciate the input -Per psychiatry, recommendation is to continue Haldol, 2 mg q8h PRN, and starting Benadryl at 50 mg q.4 h. as needed for tremulousness secondary to potential extrapyramidal symptoms from Haldol. He also recommends discontinuing Haldol (after patient is done with [facility] protocol) and start him on Latuda 40 mg daily and if mentally stable, would discharge to home with followup at [facility]. -Started yesterday Invega, 234 mg IM. Will need another dose on day 8, 156 mg IV , and then another dose 117 mg IM in 1 month from the 1-st dose. Patient will need a prescription for the next two doses upon discharge. -Stop Latuda since Invega has been started with good effect -Close monitoring #3 Elevated blood pressure, present on admission, active -Start Lisinopril 5 mg qd -May need PCP follow up for better BP control #4 Acute kidney injury, present on admission, resolved -Creatinine of 1.75 on admission, baseline unknown, Cr. 0.63 today -Most likely volume related -D/c NS IV -Avoid nephrotoxic drugs -Labs in the morning #5 Anxiety, present on admission, active -Lorazepam 1mg hs #6 Pain disorder, present on admission, active -As above in #4 #7 Gum pain s/p wisdom teeth extraction, present on admission, active -Tylenol, po for pain -Continue amoxicillin 500 mg tid x 4 days #8 Chronic drug dependence, present on admission, active -Maintain medication for chronic anxiety #9 Alcohol dependence, present on admission, active -Education and counseling for substance abuse cessation Exam Vital Signs (Last) Date Time Temp Pulse Resp B/P Pulse Ox O2 Delivery O2 Flow Rate FiO2 07/17/16 05:10 36.6 92 18 128/74 98 Room Air Exam Physical Exam: GEN: Patient was awake, alert, responding appropriately to questions, positive akathisia HEENT: PERRLA, EOMI, Neck soft supple, trachea midline, nomocephalic/atraumatic CV: +S1/S2, RRR, no murmurs auscultated Respiratory: CTAB, no wheezes, rales, rhonchi GI: +bowel sounds x4, soft, compressible, non TTP EXT: no c/c/e Neuro: CN II-XII grossly intact Psych: mood and affect were appropriate Test 07/14/16 05:12 07/14/16 05:13 07/14/16 05:30 07/14/16 09:47 Hold Zaman Top Tube Received (Received) Thyroid Stimulating Hormone (TSH) 1.770uIU/mL (0.450-4.500) Urine Opiates Screen Negative Urine Methadone Screen Negative Urine Barbiturates Screen Negative Urine Amphetamines Screen Negative Urine Benzodiazepines Screen Negative Urine Cocaine Metabolite Screen Negative Urine Cannabinoids Screen Negative Prothrombin Time 9.4sec (8.1-12.5) Prothromb Time International Ratio 0.88ratio Activated Partial Thromboplast Time 24.9sec (22.8-33.0) Phosphorus Level 4.4mg/dL (2.5-4.9) Magnesium Level 2.2mg/dL (1.6-2.6) Total Creatine Kinase 245U/L (21-232) Creatine Kinase MB 4.3ng/mL (0.0-10.4) Creatine Kinase MB % % (0.0-5.0) Test 07/14/16 10:29 07/15/16 09:25 07/17/16 05:23 Ammonia 52ug/dL (18-53) Vitamin B12 Level 493pg/mL (211-946) Hepatitis A IgM Antibody Negative (Negative) Hepatitis B Surface Antigen Negative (Negative) Hepatitis B Core IgM Antibody Negative (Negative) Hepatitis C Antibody <0.1s/co ratio (0.0-0.9) Hepatitis C Comment Comment (.) Hold Urine Received (Received) White Blood Count 4.9th/mm3 (3.8-10.1) Red Blood Count 4.72mil/mm3 (4.40-5.80) Hemoglobin 14.7g/dL (13.8-17.2) Hematocrit 42.9% (41.0-50.0) Mean Corpuscular Volume 90.9fL (81-100) Mean Corpuscular Hemoglobin 31.1pg (27.0-35.0) Mean Corpuscular Hemoglobin Concent 34.3% (32.0-37.0) Red Cell Distribution Width 13.4% (12.3-15.4) Platelet Count 247bil/L (150-400) Neutrophils (%) (Auto) 58.7% (40-74) Lymphocytes (%) (Auto) 28.7% (14-46) Monocytes (%) (Auto) 6.9% (4-12) Eosinophils (%) (Auto) 4.3% (0-5) Basophils (%) (Auto) 0.6% (0-3) Sodium Level 138mEq/L (134-144) Potassium Level 4.4mEq/L (3.5-5.2) Chloride Level 100mEq/L (97-108) Carbon Dioxide Level 19mmol/L (18-29) Blood Urea Nitrogen 5mg/dL (6-20) Creatinine 0.64mg/dL (0.76-1.27) Estimat Glomerular Filtration Rate 153mL/min (>59) Glucose Level 134mg/dL (60-99) Calcium Level 9.4mg/dL (8.5-10.1) Total Bilirubin 0.2mg/dL (0.0-1.2) Aspartate Amino Transf (AST/SGOT) 70U/L (0-50) Alanine Aminotransferase (ALT/SGPT) 48U/L (0-44) Alkaline Phosphatase 103U/L (25-150) Total Protein 7.0g/dL (6.4-8.4) Albumin 4.3g/dL (3.4-5.0) Discharge Medications Discharge Medications Amoxicillin (Amoxicillin) 500 Mg Tablet 500 MG PO TID Prescribed by: JOJO GOLD DO Lisinopril (Lisinopril) 5 Mg Tablet 5 MG PO DAILY Prescribed by: JOJO GOLD DO Lorazepam (Ativan) 0.5 Mg Tablet 0.5 MG PO HS Prescribed by: JOJO GOLD DO Paliperidone Palmitate Inj (Invega Sustenna) 156 Mg/1 Ml Syringe 156 MG IM ONCE Prescribed by: JOJO GOLD DO Vit#96/Ferrous Fum/FA ( Tablet) 1 Each Tablet 1 TABLET PO DAILY Prescribed by: JOJO GOLD DO As needed ([diphenHYDramine]) 50 MG CAPSULE 50 MG PO Q4 PRN PRN tremulousness Prescribed by: JOJO GOLD DO Haloperidol (Haloperidol) 1 Mg Tablet 2 MG PO Q8H PRN PRN voices Prescribed by: JOJO GOLD DO Ibuprofen (Ibuprofen) 200 Mg Capsule 200 MG PO QID PRN PRN For Pain (Reported) Additional med instructions New Medications: Amoxicillin 500 mg 3 times a day 4 more doses. Haloperidol 2 mg 3 times a day as needed for voices. Lisinopril 5 mg daily. Lorazepam 0.5 mg before bedtime as needed for insomnia. vitamin 1 tablet daily. Benadryl 50 mg every 4 hours as needed for tremulousness. Invega 156 mg IM x 1 dose on 07/23/16. Continued medications: Ibuprofen 200 mg 4 times a day as needed for pain. Followup Plan Disposition: Discharged home in stable condition Follow-up plan Please follow up with [facility] mental health services within the next week. You will need another dose of Invega 117 mg intramuscularly in one month from your first injection on 08/15/2016. Your next Invega injection will be on 2016 for which you were provided a prescription. . Discharge Diet: No restrictions Discharge Activity: Limited until seen by PCP [facility] Follow-up with PCP in: 1 week Time spent Greater than 35 minutes Lyric Lewis DO Jul 17, 2016 18:23
== END 2016-07-17 12:40 | disposition home or self-care (01) | DRG 897 ==
LOC: SED 05:05 → MPC 08:51
PROVIDERS: ADMIT Neuromusculoskeletal Medicine & OMM; ATTEND Neuromusculoskeletal Medicine & OMM
DX: F10.239 Alcohol dependence with withdrawal, unspecified (principal); F20.1 Disorganized schizophrenia; F20.0 Paranoid schizophrenia; F29 Unspecified psychosis not due to a substance or known physiological condition; F17.200 Nicotine dependence, unspecified, uncomplicated; F41.9 Anxiety disorder, unspecified; F12.90 Cannabis use, unspecified, uncomplicated; Z98.818 Other dental procedure status